=== PATIENT | male | born 1975 ===

== ENCOUNTER → 2018-08-19 08:28 | Day surgery (SDC) | payer SELFPAY ==
[~2018-08-19 08:28] MED LIST: Atracurium* 10 MG/ML 10 ML VIAL ONE; Buffered Lidocaine 1% SYRIN* 1 ML/SYRINGE INTRADERM ONE; Bupivacaine 0.5% W/EPI SDV* 30 ML VIAL ONE; Dexamethasone IV* 4 MG/ML 1 ML (4 MG) IV SLOW PU ONE; Dexamethasone IV* 4 MG/ML 1 ML (4 MG) ONE; DiMENhydriNATE IV* 50 MG/ML VIAL IV PUSH PRN; Famotidine IV* 10 MG/ML 2 ML (20 mg) IV ONE; Famotidine IV* 10 MG/ML 2 ML (20 mg) ONE; Ketorolac INJ* 30 MG/ML 1 ML VIAL ONE; Lactated Ringers 1000 ML Bag* 1,000 ML IV SCH; Lidocaine 1% INJ* 10 MG/ML 30 ML SDV ONE; Lidocaine 2% PF * 5 ML VIAL ONE; Midazolam* 1 MG/ML 5 ML VIAL (5 MG) ONE; Naloxone* 0.4 MG/ML 1 ML VIAL IV PRN; Ondansetron INJ* 2 MG/ML VIAL IV PRN; Ondansetron INJ* 2 MG/ML VIAL ONE; Propofol* 10 MG/ML 20 ML BTL ONE; ceFAZolin 2 GM PREMIX in ORs 2 GM/50 ML BAG IVPB ONE; fentaNYL* 50 MCG/ML 5 ML VIAL (250 MCG VIAL) ONE; oxyCODONE/Acetamin 5/325 MG* TAB PO PRN
[2018-08-19 14:49] VITALS: BP 106/70
--- NOTE | 2018-08-19 23:18 | OP ---
CC: Dr. Shaheen Weaver * DATE OF OPERATION: 08/19/18 - [facility] DATE OF : 77 SURGEON: Frank Martin MD LEATHER CARVER: BRENNA Eldridge ANESTHESIOLOGIST: Dr. Orozco. ANESTHESIA: Local MAC anesthesia. PRE-OP DIAGNOSIS: Ventral hernia. POST-OP DIAGNOSIS: Ventral hernia. OPERATIVE PROCEDURE: Open reduction and hernia repair with mesh. ESTIMATED BLOOD LOSS: Minimal. FLUIDS: No crystalloid fluid given. SPECIMEN: Hernia sac. DRAINS: None. DESCRIPTION OF PROCEDURE: The patient was identified in the preoperative area. He was marked. Consent was signed. Case was discussed with the patient, who was then brought to the operating room, placed on the operating table in the supine position. Preoperative antibiotics were given. Sequential devices were placed on bilateral lower extremities. General sedation was given. The patient 's abdomen was clipped off hair and he was prepped and draped in a standard surgical fashion. A time-out was performed. An up and down incision was made supraumbilically, this was deepened down to what appeared to be a hernia sac, which was isolated off the anterior fascia laterally. This extended toward the umbilical stalk, but the umbilical stalk was free of it. We extended our incision somewhat more superiorly after noting a small similar defect above this. In the end, they both proved to be epigastric hernias. The hernia sac of the one close to the umbilicus was then entered and omentum was lysed off of the hernia sac and then reduced back into the abdomen and appeared intact without evidence of ischemia. The hernia sac was ligated and passed off as specimen. I was able to place my fifth digit into the abdomen and feel for any additional hernias. There was no hernia in the umbilicus and the small defect superiorly could not be appreciated intraabdominally; therefore, it just seemed to be a small preperitoneal herniation. Next, I cleaned off the area and made a decision to place a plug, which was then inserted into the abdominal cavity, allowed to spring open. It was then sutured inferiorly and superiorly through good healthy fascia. It should be noted that I did place a 0 Prolene suture at the fascia superior to the main hernia defect after reducing the preperitoneal fat. The mesh encompassed this area and the tails of the mesh were sutured inferior and superior with an 0 Vicryl stitch. I then closed the hernia defect with fascia laterally and also just the hernia sac medially to cover the entire mesh. The wound was then irrigated. Hemostasis was achieved. I then closed the incision with 3-0 Vicryl sutures, followed by 4-0 Monocryl subcuticular sutures. Steri-Strips and sterile dressing were applied. The patient tolerated the procedure well and was transferred to the PACU in stable condition. [id number] #: [id number] ELIZA
== END | disposition home or self-care (01) ==
LOC: OR 08:28
PROVIDERS: ATTEND Surgery
DX: K43.9 Ventral hernia without obstruction or gangrene (principal); Z87.891 Personal history of nicotine dependence; R05 Cough; G40.89 Other seizures
CPT/HCPCS: 88302; C1781; J0690; J1100; J1885; J2250; J2405; J2704; J3010